=== PATIENT | male | born 1980 | race Caucasian/White ===

== ENCOUNTER 2020-10-03 11:38 | Emergency (ER) | payer BC, MEDICAID ==
[~2020-10-03] VITALS: Ht 182.9 cm; Wt 81.8 kg
--- NOTE | 2020-10-03 12:03 | NUR ---
DR.VAN PEGUERO AT [facility].
[2020-10-03 13:14] VITALS: BP 124/74
== END 2020-10-03 13:16 | disposition home or self-care (01) ==
LOC: ED 12:49
DX: S40.012A Contusion of left shoulder, initial encounter (principal); I10 Essential (primary) hypertension; I25.2 Old myocardial infarction; W11.XXXA Fall on and from ladder, initial encounter; Y93.89 Activity, other specified; Y92.009 Unspecified place in unspecified non-institutional (private) residence as the place of occurrence of the external cause; Y99.8 Other external cause status
CPT/HCPCS: 93005; 99283